=== PATIENT | female | born 1980 | race Hispanic/Latino ===

== ENCOUNTER 2017-05-05 09:22 | Emergency (ER) | payer MEDICAID, OTHER ==
[2017-05-05 10:20] LABS: APPEARANCE,URINE Clear (CLEAR); BILIRUBIN,URINE Negative (NEGATIVE); COLOR,URINE Yellow (YELLOW); GLUCOSE, URINE (UA) Negative (NEGATIVE); KETONES,URINE Negative (NEGATIVE); LEUKOCYTE ESTERASE ,URINE Negative (NEGATIVE); NITRATE,URINE Negative (NEGATIVE); OCCULT BLOOD,URINE Negative (NEGATIVE); PROTEIN,URINE Negative (NEGATIVE); UROBILINOGEN,URINE 0.2 mg/dL (0.2-1.0)
[2017-05-05 10:22] LABS: HCG,QUAL RESULT NEGATIVE (NEGATIVE)
== END 2017-05-05 10:52 | disposition home or self-care (01) ==
LOC: EDH 09:22
DX: N76.4 Abscess of vulva (principal); Z98.51 Tubal ligation status; Z90.710 Acquired absence of both cervix and uterus
CPT/HCPCS: 81003; 81025

== ENCOUNTER 2018-11-02 20:57 | Emergency (ER) | payer MEDICAID ==
[2018-11-02 21:11] LABS: APPEARANCE,URINE Clear (CLEAR); BILIRUBIN,URINE Negative (NEGATIVE); COLOR,URINE Yellow (YELLOW); GLUCOSE, URINE (UA) Negative (NEGATIVE); KETONES,URINE Negative (NEGATIVE); LEUKOCYTE ESTERASE ,URINE Negative (NEGATIVE); NITRATE,URINE Negative (NEGATIVE); OCCULT BLOOD,URINE Negative (NEGATIVE); PH,URINE 6.5 (5.0-8.0); PROTEIN,URINE Negative (NEGATIVE)
[2018-11-02 21:16] LABS: BACTERIA,URINE Few /HPF (None Seen); RBC,URINE 0-1 /HPF (0-1); SQUAMOUS EPITHELIAL CELL,UR Few /HPF (0-2); WBC,URINE 0-1 /HPF (0-1)
[2018-11-02 21:24] LABS: BASOPHILS % (AUTO) 0.8 % (0.0-5.0); EOSINOPHILS % (AUTO) 1.2 % (0.0-8.0); HEMATOCRIT 40.4 % (36-48); LYMPHOCYTES % (AUTO) 39.3 % (21.0-51.0); MEAN CORPUSCULAR HEMOGLOBIN 28.9 pg (27.0-33.0); MEAN CORPUSCULAR HGB CONC 33.1 g/dL (32.0-36.0); MEAN CORPUSCULAR VOLUME 87.5 fL (79-99); MONOCYTES % (AUTO) 5.7 % (3.0-13.0); PLATELET COUNT (AUTO) 334 K/uL (130-400); RED BLOOD CELL COUNT(AUTO) 4.61 MIL/uL (4.00-5.50); RED CELL DISTRIBUTION WIDTH 12.8 % (11.0-15.5); WHITE BLOOD COUNT (AUTO) 13.3 K/uL (4.8-10.8)
[2018-11-02 21:33] LABS: CREATININE 0.8 mg/dL (0.5-1.5); POTASSIUM 3.8 mmol/L (3.5-5.1)
[2018-11-02] MEDS ORDERED: KETOROLAC TROMETHAMINE 30MG/ML ONE (21:56)
[2018-11-02] MEDS ORDERED: ONDANSETRON HCL 4 MG/2 ML VIAL ONE (21:56)
== END 2018-11-02 22:29 | disposition home or self-care (01) ==
LOC: EDH 20:57
DX: K59.00 Constipation, unspecified (principal); K42.9 Umbilical hernia without obstruction or gangrene; R50.9 Fever, unspecified; J45.909 Unspecified asthma, uncomplicated; F41.9 Anxiety disorder, unspecified; Z90.710 Acquired absence of both cervix and uterus; Z98.51 Tubal ligation status; Z98.890 Other specified postprocedural states
CPT/HCPCS: 36415; 74176; 80048; 81001; 82150; 83690; 85025; 87804 ×2; 96374; 96375; 99285; J1885; J2405

== ENCOUNTER 2022-10-07 19:56 | Emergency (ER) | payer MEDICAID | END 2022-10-07 21:11 | disposition left against medical advice (07) | LOC: EDH 19:56 | DX: M54.50 Low back pain, unspecified (principal); Z53.21 Procedure and treatment not carried out due to patient leaving prior to being seen by health care provider ==

== ENCOUNTER 2023-09-11 08:56 | Emergency (ER) | payer MEDICAID, OTHER ==
[~2023-09-11] VITALS: Ht 149.9 cm; Wt 85.7 kg
[2023-09-11 09:40] LABS: BASOPHILS # (AUTO) 0.05 K/uL (0.00-0.20); BASOPHILS % (AUTO) 0.5 % (0.0-5.0); EOSINOPHILS # (AUTO) 0.17 K/uL (0.00-0.70); EOSINOPHILS % (AUTO) 1.8 % (0.0-8.0); HEMATOCRIT 40.9 % (36-48); IMMATURE GRANULOCYTE ABSOLUTE 0.05 K/uL (0-1); LYMPHOCYTES # (AUTO) 3.7 K/uL (1.0-4.8); LYMPHOCYTES % (AUTO) 39.5 % (21.0-51.0); MEAN CORPUSCULAR HEMOGLOBIN 28.5 pg (27.0-33.0); MEAN CORPUSCULAR HGB CONC 33.3 g/dL (32.0-36.0); MEAN CORPUSCULAR VOLUME 85.7 fL (79-99); MONOCYTES # (AUTO) 0.5 K/uL (0.1-1.0); MONOCYTES % (AUTO) 5.3 % (3.0-13.0); NEUTROPHILS # (AUTO) 4.9 K/uL (1.8-7.7); NEUTROPHILS % (AUTO) 52.4 % (40.0-77.0); PLATELET COUNT (AUTO) 296 K/uL (130-400); RED BLOOD CELL COUNT(AUTO) 4.77 MIL/uL (4.00-5.50); RED CELL DISTRIBUTION WIDTH 12.5 % (11.0-15.5); WHITE BLOOD COUNT (AUTO) 9.3 K/uL (4.8-10.8)
[2023-09-11 09:59] LABS: ALBUMIN 3.6 g/dL (3.5-5.0); BILIRUBIN,TOTAL 0.3 mg/dL (0.2-1.0); CREATININE 0.8 mg/dL (0.5-1.0); POTASSIUM 4.2 mmol/L (3.5-5.1)
[2023-09-11] MEDS: 0.9%NACL 1000ML 1,000 ML IV ONE (12:03)
[2023-09-11] MEDS: PROCHLORPERAZINE 10MG/2ML INJ IV ONE (12:03)
[2023-09-11] MEDS: DiphenhydrAMINE HCL 50 MG/ML VIAL IV ONE (12:04)
[2023-09-11] MEDS: SOLU-MEDROL 125MG VIAL IVP ONE (12:04)
[2023-09-11] MEDS: KETOROLAC 30MG VIAL (30MG/ML) IVP ONE (12:04)
[2023-09-11 13:48] VITALS: BP 155/88; PULSE 70; RESP 18; O2SAT 98
== END 2023-09-11 13:48 | disposition home or self-care (01) ==
LOC: EDH 08:56
DX: G43.909 Migraine, unspecified, not intractable, without status migrainosus (principal); R03.0 Elevated blood-pressure reading, without diagnosis of hypertension; F41.9 Anxiety disorder, unspecified; J45.909 Unspecified asthma, uncomplicated; F32.A Depression, unspecified; Z90.710 Acquired absence of both cervix and uterus
CPT/HCPCS: 99285; 96374; 96375; 70450; 96361; 80053; 85025; 36415; J1200; J7030; J2919; J0780; J1885

== ENCOUNTER 2024-03-13 11:07 | Emergency (ER) | payer OTHER ==
[~2024-03-13] VITALS: Ht 149.9 cm; Wt 90.3 kg
[2024-03-13] MEDS: ketOROlac 15MG/ML VIAL (15MG/ML) IM STA (12:17)
[2024-03-13] MEDS: methoCARBamol 500 MG TABLET PO STA (12:18)
--- NOTE | 2024-03-13 12:49 | ERN ---
ED Note History of Present Illness Stated Complaint: RT UPPER BACK/NECK PAIN S/P INJURY ON 02/22/24 Chief Complaint: Back Pain or Injury Time Seen by MD: 11:39 Time Seen by Midlevel: 11:43 Dictation: 44-year-old female complaining of right back pain that radiates to her neck. Patient states she had a near fall on 02/21 was assessed at that time with x- rays and was told nothing was broken and is currently in physical therapy. States this morning she started with the pain. Denies any recent injuries. Denies any chest pain, shortness of breath, nausea, vomiting, diarrhea. Allergies: Coded Allergies: No Known Drug Allergies (Verified Allergy, Unknown, 11/23/17) Past Medical History Past Medical History: Anxiety, Asthma, Depression Surgical History: Hysterectomy, Other, Surgical History Other: TUBAL LIGATION Review of System Dictation Constitutional: Negative for fever,chills, and weight loss Eyes: Negative for injury, pain,redness, and discharge ENT: Negative for injury,pain or swelling Cardiovascular: Negative for chest pain, palpitations, and edema Respiratory: Negative for shortness of breath, cough, and wheezing, Abdomen/GI: Negative for abdominal pain, nausea, vomiting, diarrhea, and constipation Back: Negative for injury complaining of right upper back pain : Negative for injury, bleeding and discharge MS/Extremity: Negative for injury and deformity Skin: Negative for rash, and discoloration Neuro: Negative for headache, weakness, numbness, tingling, and seizure Psych: Negative for suicide ideation, homicidal ideation, and hallucinations Review of Systems: was completed Initial Vital Sign VS Vital Signs Date Time Temp Pulse Resp B/P (MAP) Pulse Ox O2 Delivery O2 Flow Rate FiO2 03/13/24 11:09 98.8 87 18 183/100 98 0 Physical Exam Dictation General: awake, alert, NAD Head/Face: Normocephalic, atraumatic Eyes: PERRL, EOMI, vision at baseline ENT: oral cavity clear, TMs clear, no signs of infection Neck: Trachea midline, supple, no nuchal rigidity Cardiovascular: RRR, normal S1/S2, No MRGs, no JVD Respiratory: CTAB, no respiratory distress, No rales or wheezes Abdomen: Soft, non-tender, non-distended, normal bowel sounds, no guarding or rebound. Skin: Warm, dry, normal turgor, no rash MS/Extremity: Pulses equal, no cyanosis, neurovascular intact, FROM patient complaining of right upper back pain in between this scapula radiating up to her neck. Neuro: COAx4, GCS 15, strength 5/5, CN 2-12 intact, normal cerebellar exam, normal gait, Psych: Normal behavior, mood, and affect normal ED Course ED Course Orders Procedure Category Date Status Time Ketorolac PHA 03/13/24 Complete Tromethamine 15mg/Ml 11:56 Methocarbamol PHA 03/13/24 Complete (Methocarbamol) 11:56 Current Medications Medications (Trade) Dose Ordered Sig/Doc Route PRN Reason Start Time Stop Time Status Last Admin Dose Admin Ketorolac Tromethamine (toRADol) 15 mg ONCE STAT IM 03/13/24 11:56 03/13/24 12:05 DC 03/13/24 12:17 Methocarbamol (methoCARBamol) 1,000 mg ONCE STAT PO 03/13/24 11:56 03/13/24 12:05 DC 03/13/24 12:18 Vital Signs Date Time Temp Pulse Resp B/P (MAP) Pulse Ox O2 Delivery O2 Flow Rate FiO2 03/13/24 11:09 98.8 87 18 183/100 98 0 Medical Decision Making MDM MDM: 44-year-old female complaining of right back pain that radiates to her neck. Patient states she had a near fall on 02/21 was assessed at that time with x-rays and was told nothing was broken and is currently in physical therapy. States this morning she started with the pain. Denies any recent injuries. Denies any chest pain, shortness of breath, nausea, vomiting, diarrhea. There is pain on palpation to the right upper back pain between the scapula radiating to her neck. Patient states she does use her right hand a lot states she lives only taking Tylenol at home and recently did not help. On reassessment after pain medication patient states feels better we will prescribe muscle relaxer. Educated patient follow up with her PCP to return to the ER if any symptoms worsen. Differential diagnosis: Muscle strain, muscle spasm, Rationale: Tests considered and ordered secondary to shared decision making include: Previous outside records reviewed: Old ER visits. Risk of complication and/or morbidity or mortality of patient management: None Medications-Per medication reconciliation Need for hospitalization: Patient does not meet criteria for hospitalization. Need for emergency major/minor surgery: No There are no social concerns with this patient. Prescription drug management Prescriptions will include symptomatic care Patient's prior external medical records from other ER visits were reviewed by me as indicated. Prior testing and results from previous visits were reviewed. Prior tests were taken into account with medical decision making and resource utilization, independent historian/historians were used to obtain complete medical history. I independently interpreted the test that were performed, results were reviewed by me and considered findings on radiology if ordered. Medical management and examination interpretation discussions were had by me with other qualified healthcare professionals as indicated for the patient's care. DX & DISP Disposition: Discharge Departure Impression: Primary Impression: Muscle spasm Condition: Stable Scripts Methocarbamol (Methocarbamol) 500 Mg Tablet 1 TAB PO TID for 5 Days, #15 TAB 0 Refills Prov: CAR MCCRACKEN NP 03/13/24 Additional Instructions: You can take Tylenol or Motrin in conjunction with the muscle relaxer that I prescribed. Follow up with her PCP in 1-2 days. Return if symptoms worsen. Referrals: JORDIN HENDERSON DO (PCP) Time of Disposition: 12:58 I have reviewed the case, and I agree with, Diagnosis and Plan CAR MCCRACKEN NP Mar 13, 2024 12:49
[2024-03-13] MEDS ORDERED: METH-811 PO (12:59)
[2024-03-13 13:02] VITALS: BP 132/80; PULSE 90; RESP 16; TEMP 98.3; O2SAT 100
== END 2024-03-13 13:10 | disposition home or self-care (01) ==
LOC: EDH 11:07
DX: M62.830 Muscle spasm of back (principal); J45.909 Unspecified asthma, uncomplicated; F32.A Depression, unspecified; F41.9 Anxiety disorder, unspecified; Z90.710 Acquired absence of both cervix and uterus; W18.39XA Other fall on same level, initial encounter; Y93.89 Activity, other specified; Y92.89 Other specified places as the place of occurrence of the external cause; Y99.8 Other external cause status
CPT/HCPCS: 99283; 96372; J1885

== ENCOUNTER 2024-04-09 01:40 | Emergency (ER) | payer SELFPAY ==
[~2024-04-09] VITALS: Ht 149.9 cm; Wt 89.8 kg
[~2024-04-09 01:40] MED LIST: METH-811 PO
--- NOTE | 2024-04-09 01:52 | ERN ---
ED Note History of Present Illness Stated Complaint: LEFT 2ND TOE INJURY Chief Complaint: Toe Pain/Injury Time Seen by MD: 01:42 Time Seen by Midlevel: 01:42 Dictation: The patient is a 44-year-old female with a history of asthma, hysterectomy, tubal ligation who presents to the emergency department with 2nd and 3rd left toe injury. Patient reports she accidentally hit her toes with the bed. No other injuries reported. Allergies: Coded Allergies: No Known Drug Allergies (Verified Allergy, Unknown, 11/23/17) Home Meds Active Scripts Methocarbamol (Methocarbamol) 500 Mg Tablet, 1 TAB PO TID for 5 Days, #15 TAB 0 Refills Prov:CAR MCCRACKEN NP 03/13/24 Past Medical History Past Medical History: Anxiety, Asthma, Depression Surgical History: Hysterectomy, Other, BTL, Surgical History Other: TUBAL LIGATION RN Note Reviewed/Agreed w/PFSH: Yes Review of System Dictation Constitutional: Negative for fever,chills, and weight loss Eyes: Negative for injury, pain,redness, and discharge ENT: Negative for injury,pain or swelling Cardiovascular: Negative for chest pain, palpitations, and edema Respiratory: Negative for shortness of breath, cough, and wheezing, Abdomen/GI: Negative for abdominal pain, nausea, vomiting, diarrhea, and constipation Back: Negative for injury and pain : Negative for injury, bleeding and discharge MS/Extremity: positive for left toe S injury Skin: Negative for rash, and discoloration Neuro: Negative for headache, weakness, numbness, tingling, and seizure Psych: Negative for suicide ideation, homicidal ideation, and hallucinations Initial Vital Sign VS Vital Signs Date Time Temp Pulse Resp B/P (MAP) Pulse Ox O2 Delivery O2 Flow Rate FiO2 04/09/24 01:41 98.1 91 20 169/98 98 Room Air 04/09/24 02:18 0 21 Physical Exam Dictation Vital Signs reviewed General Appearance: Alert, oriented x 3, no acute distress, well developed, nourished. Head and Face: non-traumatic. Eyes: PERRL, pink conjunctivas, eyelid no trauma, anterior chamber with arcus senilis. Ears: Pinnas intact and no signs of trauma or erythema ear canals clear and no discharge TM no erythema Nose: No discharge, no bleeding. Oropharynx: Mouth normal, tongue pink. pharynx clear,no erythema, tonsils no exudates, no abscesses noted, mucous membrane moist Neck: Supple, non-tender, no thyromegaly, no masses, no JVD, no bruits Breast:Deferred Chest:No tenderness, no crepitus, no paradoxical movement, no retractions Lungs:Clear, well-ventilated, symmetric, no rales, no wheezing, no rhonchi, no stridor, good breath sounds bilaterally Heart: Regular rate, regular rhythm, no murmur, no gallops Vascular: no peripheral edema, Abdomen: Soft, positive bowel sounds, nondistended, no guarding, nontender, no rebound, no masses no hepatomegaly, no splenomegaly, no Martínez's sign, no hernias. Rectal: Deferred Genital: Deferred Neurological: Normal speech, motor function intact, sensory function intact Musculoskeletal: Neck nontender, full range of motion, back nontender, full range of motion, Extremities: nontender, full range of motion , tenderness to 2nd and 3rd left toe, no deformities, no bruising, no open wounds, cap refill less than 2 seconds Skin: Color pink, dry, no turgor, no rash, no lacerations, no abrasions, no contusions. Lymphatic: Deferred Results (Laboratory/Radiology) Labs Reviewed?: Yes ED Course ED Course Orders Procedure Category Date Status Time Toe(S) 2+Vws Lt RAD 04/09/24 Taken 01:49 Ibuprofen 800 Mg Tab PHA 04/09/24 Complete (Motrin) 02:00 Current Medications Medications (Trade) Dose Ordered Sig/Doc Route PRN Reason Start Time Stop Time Status Last Admin Dose Admin Ibuprofen (moTRIN) 800 mg ONCE ONCE PO 04/09/24 02:00 04/09/24 02:01 DC 04/09/24 02:19 Vital Signs Date Time Temp Pulse Resp B/P (MAP) Pulse Ox O2 Delivery O2 Flow Rate FiO2 04/09/24 02:18 98.6 66 20 132/88 100 Room Air* 0 21 04/09/24 01:41 98.1 91 20 169/98 98 Room Air Medical Decision Making MDM The patient is a 44-year-old female with a history of asthma, hysterectomy, tubal ligation who presents to the emergency department with 2nd and 3rd left toe injury. Patient reports she accidentally hit her toes with the bed. No oth er injuries reported. Three revealed proximal 2nd toe fractured. Patient will be discharged to follow up with PCP and orthopedic referral. Patient no acute distress. Differential diagnosis: Toe contusion, toe fracture, toe dislocation Need for hospitalization: Patient does not meet criteria for hospitalization. There are no social concerns with this patient. DX & DISP Disposition: Discharge Departure Impression: Primary Impression: Fracture of second toe, left, closed Condition: Stable Scripts Ibuprofen (Ibuprofen) 600 Mg Tablet 600 MG PO Q6H PRN for PAIN, #15 TAB Prov: LOULOU PATEL 04/09/24 Additional Instructions: FOLLOW-UP WITH PRIMARY CARE PROVIDER IN 1 TO 2 DAYS. TAKE MEDICATIONS DIRECTED HERE IN THE EMERGENCY ROOM. OKAY TO CONTINUE HOME MEDICATIONS UNLESS OTHERWISE DISCUSSED DURING YOUR VISIT IN THE EMERGENCY ROOM TODAY. RETURN TO YOUR NEAREST EMERGENCY ROOM IF SYMPTOMS WORSEN OR IF THERE IS NO IMPROVEMENT. CALL 911 IF YOU NEED IMMEDIATE ASSISTANCE. TAKE TYLENOL OR MOTRIN [id number] NEEDED AND IF NO CONTRAINDICATIONS ARE PRESENT. INCREASE ORAL HYDRATION. A WOUND CULTURE OR URINE CULTURE WAS ORDERED HERE IN THE EMERGENCY ROOM DEPARTMENT PLEASE FOLLOW-UP WITH PRIMARY CARE PROVIDER AND ADVISE THEM TO GET REPEAT PORTS FROM OUR FACILITY. IF YOU HAD ANY LULU WRAP/SPLINTS THAT WERE APPLIED HERE, PLEASE DO NOT REMOVE THEM UNTIL YOU SEE YOUR PRIMARY CARE OR SPECIALTY. Referrals: JORDIN HENDERSON DO (PCP) Time of Disposition: 02:43 I have reviewed the case, and I agree with, Diagnosis and Plan LOULOU PATEL Apr 09, 2024 01:52
[2024-04-09 02:18] VITALS: BP 132/88; PULSE 66; RESP 20; TEMP 98.6; O2SAT 100
[2024-04-09] MEDS: ibuPROFEN 800 MG TAB PO ONE (02:19)
[2024-04-09] MEDS ORDERED: IBUP-2070 PO (02:53)
--- NOTE | 2024-04-09 08:54 | HMCIMG ---
Exam Type: TOE(S) 2+VWS LT Clinical Information: trauma Comparison: None Findings and impression: Oblique fracture midshaft proximal phalanx second digit. No other fractures or abnormalities.
== END 2024-04-09 03:17 | disposition home or self-care (01) ==
LOC: EDH 01:40
DX: S92.512A Displaced fracture of proximal phalanx of left lesser toe(s), initial encounter for closed fracture (principal); F41.9 Anxiety disorder, unspecified; J45.909 Unspecified asthma, uncomplicated; Z90.710 Acquired absence of both cervix and uterus; W22.8XXA Striking against or struck by other objects, initial encounter; Y93.89 Activity, other specified; Y92.89 Other specified places as the place of occurrence of the external cause; Y99.8 Other external cause status
CPT/HCPCS: 73660; 99283

== ENCOUNTER 2024-08-09 09:38 | Emergency (ER) | payer SELFPAY ==
[~2024-08-09] VITALS: Ht 149.9 cm; Wt 91.2 kg
[~2024-08-09 09:38] MED LIST changes: +IBUP-2070 PO
--- NOTE | 2024-08-09 09:46 | NUR ---
NOTIFIED PRIMARY NURSE LEIA [place] [phone]
[2024-08-09 10:10] LABS: HEMATOCRIT 41.9 % (36-48); MEAN CORPUSCULAR HEMOGLOBIN 28.5 pg (27.0-33.0); MEAN CORPUSCULAR HGB CONC 32.2 g/dL (32.0-36.0); MEAN CORPUSCULAR VOLUME 88.4 fL (79-99); RED BLOOD CELL COUNT(AUTO) 4.74 MIL/uL (4.00-5.50); RED CELL DISTRIBUTION WIDTH 13.1 % (11.0-15.5)
[2024-08-09 10:16] LABS: CREATININE 0.7 mg/dL (0.5-1.0); POTASSIUM 3.7 mmol/L (3.5-5.1)
[2024-08-09 11:08] LABS: APPEARANCE,URINE CLEAR (CLEAR); BILIRUBIN,URINE NEGATIVE (NEGATIVE); COLOR,URINE LIGHT-YELLOW (YELLOW); GLUCOSE, URINE (UA) NEGATIVE (NEGATIVE); KETONES,URINE NEGATIVE (NEGATIVE); LEUKOCYTE ESTERASE ,URINE NEGATIVE Leu/uL (NEGATIVE); NITRATE,URINE NEGATIVE (NEGATIVE); OCCULT BLOOD,URINE NEGATIVE (NEGATIVE); PH,URINE 5.5 (5.0-8.0); PROTEIN,URINE NEGATIVE (NEGATIVE); UROBILINOGEN,URINE 0.2 mg/dL (0.2-1.0)
[2024-08-09 11:10] LABS: HCG,QUALITATIVE URINE NEGATIVE (NEGATIVE)
[2024-08-09 11:11] LABS: MUCUS,URINE RARE LPF (None Seen); RBC,URINE 0-1 /HPF (0-1); SQUAMOUS EPITHELIAL CELL,UR FEW /HPF (0-2)
[2024-08-09] MEDS ORDERED: IOHEXOL 350 MG/ML 100ML INFUS..BTL IV ONE (11:53)
--- NOTE | 2024-08-09 12:20 | HMCIMG ---
CT ABDOMEN/PELVIS W/CONTRAST HISTORY: Right lower abdominal pain COMPARISON: None TECHNIQUE: Multiple sequential axial images of the abdomen and pelvis were obtained from the dome of the diaphragm through symphysis pubis. Patient was 100 cc of Omnipaque through intravenous route. Oral contrast was not given. FINDINGS: No pleural effusion is seen bilaterally. There is no evidence of parenchymal disease or pulmonary nodule of the visualized lower lungs. Degenerative changes of the thoracolumbar spine are present. The heart is not enlarged. Liver is enlarged with fatty changes measuring 18.5 cm. The liver, spleen, adrenal glands and pancreas are unremarkable. There is no evidence of hydronephrosis bilaterally. No evidence of renal stone is seen. Fecal material is seen in the colon. There are normal size retroperitoneal and mesenteric lymph nodes. No ascites is seen. No CT evidence of acute appendicitis is seen. Clinical correlation is recommended. Small bilateral renal cysts are seen with the largest in the lower pole of the right kidney measuring 12 mm. No bowel obstruction is seen. Uterus has been removed. Pelvic sidewalls are symmetric bilaterally. Bladder is poorly distended. IMPRESSION: 1. No CT evidence of acute appendicitis is seen. Clinical correlation is recommended. CT was performed with one or more following dose reduction techniques: automated exposure control, adjustment of the mA and kv according to patient's size, or use of a iterative reconstruction technique.
[2024-08-09] MEDS ORDERED: LACT10SO85 PO (12:33)
[2024-08-09] MEDS ORDERED: METH-662 PO (12:33)
--- NOTE | 2024-08-09 12:33 | ERN ---
General Chief Complaint: Abdominal Pain Stated Complaint: ABDOMINAL PAIN Time Seen by MD: 09:40 Source: patient History of Present Illness Initial Comments Patient is a 44-year-old female coming in to be evaluated for right flank pain. Patient states that the pain has been ongoing for couple of days. She states that the pain is localized to the right flank region and radiates to the right inguinal region. No fever or chills no nausea no vomiting. Allergies: Coded Allergies: No Known Drug Allergies (Verified Allergy, Unknown, 11/23/17) Home Meds Active Scripts Ibuprofen (Ibuprofen) 600 Mg Tablet, 600 MG PO Q6H PRN for PAIN, #15 TAB Prov:LOULOU PATEL CARBOY FILLER 04/09/24 Methocarbamol (Methocarbamol) 500 Mg Tablet, 1 TAB PO TID for 5 Days, #15 TAB 0 Refills Prov:CAR MCCRACKEN ASSISTANT OCEANOGRAPHER 03/13/24 Past Medical History Past Medical History: Anxiety, Asthma, Depression Past Surgical History: Hysterectomy, Other, BTL, Surgical History Other: TUBAL LIGATION ROS Dictation CONSTITUTIONAL: No chills, no fever, no weakness, no diaphoresis, no malaise. HEAD/FACE: No signs of trauma. EENT: No eye pain, no blurred vision, no tearing, no double vision, no ear pain, no ear discharge, no nose pain, no nasal congestion, no throat pain, no throat swelling, no mouth pain. RESPIRATORY: No cough, no orthopnea, no SOB, no stridor, no wheezing. CARDIOVASCULAR: No chest pain, no edema, no palpitations, no syncope. GASTROINTESTINAL/ABDOMINAL: abdominal pain, no constipation, no diarrhea, no nausea, no vomiting. GENITOURINARY: No abnormal discharge, no dysuria, no frequent urination, no hematuria. No complaints of pain in the genitals. MUSCULOSKELETAL: No back pain, no gout, no joint pain, no joint swelling, no muscle pain, no muscle stiffness, no neck pain. INTEGUMENTARY: No change in color, no change in hair/nails, no dryness, no lesion, no lumps, no rash. NEUROLOGICAL/PSYCH: No anxiety, not depressed, no emotional problem, no headache, no numbness, no pre-existing deficit, no history of seizures, no tremors, no weakness. HEMATOLOGIC/LYMPHATIC: Not anemic, no history of blood clots, no apparent bleeding, no bruising, glands not swollen. All Systems Negative, Except as Noted. Physical Exam Physical Exam Dictation VITAL SIGNS: Reviewed. GENERAL APPEARANCE: Alert, oriented x3, no acute distress, obese. HEAD AND FACE: Non-traumatic. EYES: PERRL, pink conjunctivas, eyelid no trauma, anterior chamber clear. EARS: Pinnas intact and no signs of trauma or erythema. Ear canals clear and no discharge. TMs no erythema. NOSE: No discharge, no bleeding. OROPHARYNX: Mouth normal, teeth no caries, tongue pink. Pharynx clear, no erythema. Tonsils no exudates, no abscesses noted. Mucous membrane moist. NECK: Supple, non-tender, no thyromegaly, no masses, no JVD, no bruits. BREAST: Deferred. CHEST: No tenderness, no crepitus, no paradoxical movement, no retractions. LUNGS: Clear, well-ventilated, symmetric, no rales, no wheezing, no rhonchi, no stridor, good breath sounds bilaterally. HEART: Regular rate, regular rhythm, no murmur, no gallops. VASCULAR: No peripheral edema. ABDOMEN: Soft, positive bowel sounds, right flank pain reproducible on palpation, no guarding, nontender, no rebound, no masses no hepatomegaly, no splenomegaly, no Martínez's sign, no hernias. RECTAL: Deferred. GENITAL: Deferred. NEUROLOGICAL: Normal speech, gross motor function intact, gross sensory function intact. MUSCULOSKELETAL: Neck nontender, full range of motion, back nontender, full range of motion. EXTREMITIES: Nontender, full range of motion. SKIN: Color pink, dry, no turgor, no rash, no lacerations, no abrasions, no contusions. LYMPHATICS: Deferred. Results Laboratory and Microbiology Lab and Micro Result Laboratory Tests Test 08/09/24 09:50 08/09/24 10:54 White Blood Count 12.0 K/uL (4.8-10.8) H Red Blood Count 4.74 MIL/uL (4.00-5.50) Hemoglobin 13.5 g/dL (12.0-16.0) Hematocrit 41.9 % (36-48) Mean Corpuscular Volume 88.4 fL (79-99) Mean Corpuscular Hemoglobin 28.5 pg (27.0-33.0) Mean Corpuscular Hemoglobin Concent 32.2 g/dL (32.0-36.0) Red Cell Distribution Width 13.1 % (11.0-15.5) Platelet Count 302 K/uL (130-400) Mean Platelet Volume 9.4 fL (7.5-10.5) Nucleated Red Blood Cells 0.0 % (0.0-0.19) Sodium Level 135 mmol/L (136-145) L Potassium Level 3.7 mmol/L (3.5-5.1) Chloride Level 102 mmol/L (101-111) Carbon Dioxide Level 26 mmol/L (21-32) Blood Urea Nitrogen 9 mg/dL (7-18) Creatinine 0.7 mg/dL (0.5-1.0) Glomerular Filtration Rate Calc 108 mL/min (>90) Random Glucose 138 mg/dL (70-105) H Total Calcium 8.4 mg/dL (8.5-10.1) L Urine Color LIGHT-YELLOW (YELLOW) Urine Appearance CLEAR (CLEAR) Urine pH 5.5 (5.0-8.0) Urine Specific Sarita 1.021 (1.001-1.031) Urine Protein NEGATIVE mg/dL (NEGATIVE) Urine Glucose (UA) NEGATIVE mg/dL (NEGATIVE) Urine Ketones NEGATIVE mg/dL (NEGATIVE) Urine Occult Blood NEGATIVE (NEGATIVE) Urine Nitrate NEGATIVE (NEGATIVE) Urine Bilirubin NEGATIVE mg/dL (NEGATIVE) Urine Urobilinogen 0.2 mg/dL (0.2-1.0) Urine Leukocyte Esterase NEGATIVE Parul/uL Urine RBC 0-1 /HPF (0-1) Urine WBC 2-5 /HPF (0-1) H Urine Squamous Epithelial Cells FEW /HPF (0-2) Urine Bacteria None /HPF (None Seen) Urine HCG, Qualitative NEGATIVE (NEGATIVE) Labs Reviewed?: Yes EKG/XRAY/US/CT/MRI CT Scan Comment [place] [id number] [address] IMAGING REPORT Signed PATIENT: PEEWEE TAVERA MR#: [id number] : 1980 SEX: F AGE: 44 LOCATION: [facility] ORDER 1123 STATUS: REG REPORT#: [id number] SERVICE 1123 REASON: rlq pain ORDERING PHYSICIAN: CIRO MARR MD PROCEDURE: ABD PEL W - CT ABDOMEN/PELVIS W/CONTRAST CT ABDOMEN/PELVIS W/CONTRAST HISTORY: Right lower abdominal pain COMPARISON: None TECHNIQUE: Multiple sequential axial images of the abdomen and pelvis were obtained from the dome of the diaphragm through symphysis pubis. Patient was 100 cc of Omnipaque through intravenous route. Oral contrast was not given. FINDINGS: No pleural effusion is seen bilaterally. There is no evidence of parenchymal disease or pulmonary nodule of the visualized lower lungs. Degenerative changes of the thoracolumbar spine are present. The heart is not enlarged. Liver is enlarged with fatty changes measuring 18.5 cm. The liver, spleen, adrenal glands and pancreas are unremarkable. There is no evidence of hydronephrosis bilaterally. No evidence of renal stone is seen. Fecal material is seen in the colon. There are normal size retroperitoneal and mesenteric lymph nodes. No ascites is seen. No CT evidence of acute appendicitis is seen. Clinical correlation is recommended. Small bilateral renal cysts are seen with the largest in the lower pole of the right kidney measuring 12 mm. No bowel obstruction is seen. Uterus has been removed. Pelvic sidewalls are symmetric bilaterally. Bladder is poorly distended. IMPRESSION: 1. No CT evidence of acute appendicitis is seen. Clinical correlation is recommended. CT was performed with one or more following dose reduction techniques: automated exposure control, adjustment of the mA and kv according to patient's size, or use of a iterative reconstruction technique. DICTATED BY: PELON KUMAR MD DATE: 08/09/24 1216 ELECTRONICALLY SIGNED BY: PELON KUMAR MD DATE: 08/09/24 1220 [facility] MDM: Differential diagnosis: Constipation, pancreatitis, appendicitis, UTI, pyelonephritis, kidney stone, Rationale: Tests considered and ordered secondary to shared decision making include: Previous outside records reviewed: Old ER visits. Risk of complication and/or morbidity or mortality of patient management: None Patient is a 44-year-old female coming in to be evaluated for right flank pain. CT did not disclose acute findings. There is some stool burden in the right large intestine. Patient will be discharged with a diagnosis of muscle strain of the abdomen as well as constipation. Medication will be provided for symptomatic relief. ED Course Orders Procedure Category Date Status Time Cbc Without LAB 08/09/24 Complete Differential 09:42 Basic Metabolic Panel LAB 08/09/24 Complete 09:42 Urinalysis LAB 08/09/24 Complete W/Microscopic 09:42 ,Urine Test LAB 08/09/24 Complete 09:42 Ct Abdomen/Pelvis CT 08/09/24 Resulted W/Contrast 11:23 Iohexol (Omnipaque) PHA 08/09/24 Complete 11:53 Current Medications Medications (Trade) Dose Ordered Sig/Doc Route PRN Reason Start Time Stop Time Status Last Admin Dose Admin Iohexol (Omnipaque) 35,000 mg STK-MED ONCE IV 08/09/24 11:53 08/09/24 11:54 DC Vital Signs Date Time Temp Pulse Resp B/P (MAP) Pulse Ox O2 Delivery O2 Flow Rate FiO2 08/09/24 10:47 97.9 88 16 157/81 98 Room Air* 0 21 08/09/24 09:39 97.7 91 16 183/101 98 Room Air DX & DISP Disposition: Discharge Departure Impression: Primary Impression: Abdominal muscle pain Additional Impression: Constipation Condition: Stable Scripts Lactulose (Lactulose) 10 Gram/15 Ml Solution 30 ML PO BID for constipation, #500 ML 0 Refills Prov: CIRO MARR MD 08/09/24 Methocarbamol (Robaxin) 750 Mg Tab 1 TAB PO BID for 7 Days, #14 TAB 0 Refills Prov: CIRO MARR MD 08/09/24 Additional Instructions: FOLLOW-UP WITH PRIMARY CARE PROVIDER IN 1 TO 2 DAYS. TAKE MEDICATIONS DIRECTED HERE IN THE EMERGENCY ROOM. OKAY TO CONTINUE HOME MEDICATIONS UNLESS OTHERWISE DISCUSSED DURING YOUR VISIT IN THE EMERGENCY ROOM TODAY. RETURN TO YOUR NEAREST EMERGENCY ROOM IF SYMPTOMS WORSEN OR IF THERE IS NO IMPROVEMENT. CALL 911 IF YOU NEED IMMEDIATE ASSISTANCE. TAKE TYLENOL [id number] NEEDED AND IF NO CONTRAINDICATIONS ARE PRESENT. INCREASE ORAL HYDRATION. A WOUND CULTURE OR URINE CULTURE WAS ORDERED HERE IN THE EMERGENCY ROOM DEPARTMENT PLEASE FOLLOW-UP WITH PRIMARY CARE PROVIDER AND ADVISE THEM TO GET REPEAT PORTS FROM OUR FACILITY. IF YOU HAD ANY LULU WRAP/SPLINTS THAT WERE APPLIED HERE, PLEASE DO NOT REMOVE THEM UNTIL YOU SEE YOUR PRIMARY CARE OR SPECIALTY. Referrals: Referrals: JORDIN HENDERSON DO (PCP) Time of Disposition: 12:32 CIRO MARR MD Aug 09, 2024 12:33
[2024-08-09 12:59] VITALS: BP 148/83; PULSE 85; RESP 16; TEMP 97.9; O2SAT 98
== END 2024-08-09 13:00 | disposition home or self-care (01) ==
LOC: EDH 09:38
DX: M79.10 Myalgia, unspecified site (principal); K59.00 Constipation, unspecified; J45.909 Unspecified asthma, uncomplicated; F41.9 Anxiety disorder, unspecified; F32.A Depression, unspecified; Z90.710 Acquired absence of both cervix and uterus; Z98.51 Tubal ligation status
CPT/HCPCS: 99285; 74177; 80048; 85027; 81001; 81025; 36415; Q9967